=== PATIENT | male | born 1980 | race Caucasian/White ===

== ENCOUNTER 2017-03-04 23:32 | Emergency (ER) | payer OTHER ==
[2017-03-05 00:30] VITALS: BP 164/99
--- NOTE | 2017-03-05 01:48 | EDM.PDOC ---
ED HPI GENERAL MEDICAL PROBLEM - General Chief Complaint: Upper Extremity Injury/Pain Stated Complaint: UPPER NECK & BACK PAIN / HAPPENED AT WORK Time Seen by Provider: 03/05/17 00:35 Source of Information: Reports: Patient, Family History Limitations: Reports: No Limitations - History of Present Illness INITIAL COMMENTS - FREE TEXT/NARRATIVE: pt arrived with pain in the left shoulder. He was at work and some heavy boxes dropped on the shoulder and neck area. Onset: Today Duration: Hour(s): Location: Reports: Neck, Upper Extremity, Left Associated Symptoms: Reports: No Other Symptoms, Other (pt does have a burning sensation over the shoulder. ) Left Neck Pain Score (Numeric/FACES): 5 - Related Data Allergies Allergy/AdvReac Type Severity Reaction Status Date / Time No Known Allergies Allergy Verified 07/12/16 08:31 Home Meds: Home Meds Ibuprofen 400 mg PO Q6HR PRN 07/12/16 [History] Past Medical History Musculoskeletal History: Reports: Back Pain, Chronic, Other (See Below) Other Musculoskeletal History: lower back strain Psychiatric History: Reports: Anxiety - Past Surgical History HEENT Surgical History: Reports: Oral Surgery Social & Family History - Tobacco Use Smoking Status *Q: Never Smoker Second Hand Smoke Exposure: Yes - Caffeine Use Caffeine Use: Reports: Coffee, Energy Drinks - Alcohol Use Days Per Week of Alcohol Use: 0 - Recreational Drug Use Recreational Drug Use: No Drug Use in Last 12 Months: Yes Recreational Drug Type: Reports: Marijuana/Hashish Recreational Drug Use Frequency: Socially Recreational Drug Last Use: 2days ago Review of Systems - Review of Systems Review Of Systems: See Below Constitutional: Reports: No Symptoms Eyes: Reports: No Symptoms Ears: Reports: No Symptoms Nose: Reports: No Symptoms Mouth/Throat: Reports: No Symptoms Respiratory: Reports: No Symptoms Cardiovascular: Reports: No Symptoms GI/Abdominal: Reports: No Symptoms ED EXAM, GENERAL - Physical Exam Exam: See Below Free Text/Narrative:: pt arrived with pain in the area around the brachael plexus and in th left shoulder. He has good range of motion over the shoulder. Exam Limited By: No Limitations General Appearance: Alert, Anxious, Moderate Distress Ears: Normal TMs Ear Exam: Bilateral Ear: Auricle Normal, Canal Normal, TM normal Nose: Normal Inspection Throat/Mouth: Normal Inspection Head: Atraumatic Neck: Normal Inspection, Other (pt has muscle spasm above the shoulder blade area. ) Respiratory/Chest: No Respiratory Distress Cardiovascular: Regular Rate, Rhythm GI/Abdominal: Soft, Non-Tender Back Exam: Normal Inspection Extremities: Other ( Pt is tender over the areabove the shoulder blade and there is muscle spasm present. ) Neurological: Alert, Oriented, Normal Cognition Psychiatric: Normal Affect Course - Vital Signs Last Recorded V/S: Last Vital Signs Temp 36.5 C 03/05/17 00:27 Pulse Resp 18 03/05/17 00:27 BP 164/99 H 03/05/17 00:27 Pulse Ox 97 03/05/17 00:27 - Orders/Labs/Meds Orders: Active Orders 24 hr Category Date Time Status Shoulder Comp Lt [CR] Stat Exams 03/05/17 00:37 Taken Shoulder Comp Rt [CR] Stat Exams 03/05/17 00:32 Stop Req Departure - Departure Time of Disposition: 01:50 Disposition: Home, Self-Care 01 Condition: Fair Clinical Impression: Contusion of shoulder - Discharge Information Forms: ED Department Discharge Care Plan Goals: ice pack to the lower cervical area on the left and the shoulder, no work tomorrow, flexeril 10mg bid , tyelenol 3 1 tab q6h prn for pain, motrimn 600mg tid. - My Orders Last 24 Hours: My Active Orders 03/05/17 00:32 Shoulder Comp Rt [CR] Stat 03/05/17 00:37 Shoulder Comp Lt [CR] Stat - Assessment/Plan Last 24 Hours: My Active Orders 03/05/17 00:32 Shoulder Comp Rt [CR] Stat 03/05/17 00:37 Shoulder Comp Lt [CR] Stat
--- NOTE | 2017-03-06 09:23 | CR ---
Left shoulder. Findings: Mild AC joint hypertrophy. No fracture.
== END 2017-03-05 02:07 | disposition home or self-care (01) ==
LOC: JP.ED 23:32
DX: S40.012A Contusion of left shoulder, initial encounter (principal); W20.8XXA Other cause of strike by thrown, projected or falling object, initial encounter
CPT/HCPCS: 73030-26-LT; 73030-LT; 99283; 99284

== ENCOUNTER 2017-09-27 19:48 | Emergency (ER) | payer MEDICAID, OTHER ==
[2017-09-27 20:01] VITALS: BP 153/71
--- NOTE | 2017-09-27 20:23 | EDM.PDOC ---
ED HPI GENERAL MEDICAL PROBLEM - General Chief Complaint: Back Pain or Injury Stated Complaint: BACK PAIN Time Seen by Provider: 09/27/17 20:17 Source of Information: Reports: Patient, RN Notes Reviewed History Limitations: Reports: No Limitations - History of Present Illness INITIAL COMMENTS - FREE TEXT/NARRATIVE: 37-year-old gentleman presents emergency department day complaint of low back pain, he admits to doing some dancing earlier today this may have exacerbated the problem he denies any loss of bowel or bladder Lower Back Pain Score (Numeric/FACES): 7 - Related Data Allergies Allergy/AdvReac Type Severity Reaction Status Date / Time No Known Allergies Allergy Verified 07/12/16 08:31 Home Meds: Home Meds Ibuprofen 400 mg PO Q6HR PRN 07/12/16 [History] LORazepam [LORazepam] 0.5 mg PO ASDIRECTED PRN 09/27/17 [History] Past Medical History Cardiovascular History: Reports: Hypertension Other Cardiovascular History: BORDERLINE Musculoskeletal History: Reports: Back Pain, Chronic, Other (See Below) Other Musculoskeletal History: lower back strain Neurological History: Reports: Concussion, Other (See Below) Other Neuro History: HX HERNIATED DISCS, HAD PHYSICAL THERAPY Psychiatric History: Reports: Anxiety - Past Surgical History HEENT Surgical History: Reports: Oral Surgery Social & Family History - Tobacco Use Smoking Status *Q: Never Smoker Second Hand Smoke Exposure: Yes - Caffeine Use Caffeine Use: Reports: Coffee, Soda - Alcohol Use Days Per Week of Alcohol Use: 0 - Recreational Drug Use Recreational Drug Use: No Drug Use in Last 12 Months: Yes Recreational Drug Type: Reports: Marijuana/Hashish Recreational Drug Use Frequency: Socially Recreational Drug Last Use: 2days ago ED ROS GENERAL - Review of Systems Review Of Systems: See Below Constitutional: Reports: No Symptoms Respiratory: Reports: No Symptoms Cardiovascular: Reports: No Symptoms GI/Abdominal: Reports: No Symptoms Musculoskeletal: Reports: Back Pain Neurological: Reports: No Symptoms ED EXAM,LOWER BACK PAIN/INJURY - Physical Exam Exam: See Below Exam Limited By: No Limitations General Appearance: Alert, WD/WN, No Apparent Distress Respiratory/Chest: No Respiratory Distress Back Exam: Normal Inspection, Decreased Range of Motion, Muscle Spasm, Paraspinal Tenderness. No: Full Range of Motion, CVA Tenderness (R), CVA Tenderness (L), Vertebral Tenderness Course - Vital Signs Last Recorded V/S: Last Vital Signs Temp 98.8 F 09/27/17 20:00 Pulse 83 09/27/17 20:00 Resp 16 09/27/17 20:00 BP 153/71 H 09/27/17 20:00 Pulse Ox 97 09/27/17 20:00 - Orders/Labs/Meds Meds: Medications Discontinued Medications Generic Name Dose Route Start Last Admin Trade Name Lia PRN Reason Stop Dose Admin Cyclobenzaprine HCl 10 mg 09/27/17 20:21 09/27/17 20:27 Flexeril PO 09/27/17 20:22 10 mg ONETIME ONE Administration Ketorolac Tromethamine 60 mg 09/27/17 20:21 09/27/17 20:27 Toradol IM 09/27/17 20:22 60 mg ONETIME ONE Administration Departure - Departure Time of Disposition: 21:12 Disposition: Home, Self-Care 01 Condition: Fair Clinical Impression: Back pain Qualifiers: Back pain location: low back pain Chronicity: acute Back pain laterality: right Sciatica presence: without sciatica Qualified Code(s): M54.5 - Low back pain - Discharge Information Referrals: Adelso Verdugo SETTER OUT [Primary Care Provider] - Forms: ED Department Discharge, ED Return to Work/School Form Additional Instructions: Use hydrocodone as needed for pain control, use Flexeril as needed for muscle relaxant, Please followup with your primary care provider in 3-5 days if not better, please call return to the emergency department with worsening of symptoms. - Assessment/Plan Plan: Assessment Acuity = acute Site and laterality = low back pain Etiology = secondary lifting injury Manifestations = none Location of injury = Home Lab values = none Plan He had some improvement with Toradol injection and Flexeril, plan is to discharge home with hydrocodone 5/325 one tab by mouth 3 times a day when necessary total #10 and Flexeril 10 mg 1 tablet by mouth 3 times a day when necessary total #15 follow-up with primary care in 3-5 days for reevaluation if not better This note was dictated using oneforty recognition software please call with any questions on syntax or jose alfredo.
[2017-09-27] MEDS: Ketorolac 60 MG/2 ML SDV IM ONE (20:27)
[2017-09-27] MEDS: Cyclobenzaprine 10 MG Tab PO ONE (20:27)
== END 2017-09-27 21:27 | disposition home or self-care (01) ==
LOC: JP.ED 19:48
DX: M54.5 Low back pain (principal); I10 Essential (primary) hypertension
CPT/HCPCS: 96372; 99283; A9270; J1885

== ENCOUNTER 2019-01-30 21:25 | Emergency (ER) | payer MEDICAID ==
[2019-01-30 22:48] VITALS: BP 145/92
[2019-01-30] MEDS ORDERED: Ketorolac 60 MG/2 ML SDV IM ONE (22:59)
[2019-01-30] MEDS ORDERED: Cyclobenzaprine 10 MG Tab PO ONE (22:59)
--- NOTE | 2019-01-30 23:01 | EDM.PDOC ---
ED HPI GENERAL MEDICAL PROBLEM - General Chief Complaint: Back Pain or Injury Stated Complaint: BACK PAIN Time Seen by Provider: 01/30/19 22:55 Source of Information: Reports: Patient, RN Notes Reviewed History Limitations: Reports: No Limitations - History of Present Illness INITIAL COMMENTS - FREE TEXT/NARRATIVE: 38-year-old gentleman presents emergency department today complaint of low back pain, he states dealing with his low back pain for over a year has been physical therapy felt this was in good control however over the last week it has progressively gotten worse. He was evaluated by his primary care Flexeril and prednisone he states he has not gained much relief the pain continuous he does have follow-up appointment with his primary care tomorrow no loss of bowel or bladder low back Pain Score (Numeric/FACES): 8 - Related Data Allergies Allergy/AdvReac Type Severity Reaction Status Date / Time ibuprofen Allergy Other Unverified 01/30/19 23:08 Home Meds: Home Meds Ibuprofen 400 mg PO Q6HR PRN 07/12/16 [History] LORazepam 0.5 mg PO ASDIRECTED PRN 09/27/17 [History] Cyanocobalamin (Vitamin B-12) [Vitamin B-12] 1,000 mcg PO DAILY 06/10/18 [ History] Cholecalciferol (Vitamin D3) [Vitamin D3] 2,000 unit PO DAILY 06/15/18 [History] Cyclobenzaprine HCl 10 mg PO TID PRN 06/15/18 [History] raNITIdine HCl [Zantac] 150 mg PO BID 06/15/18 [History] predniSONE 01/30/19 [History] Past Medical History Cardiovascular History: Reports: Hypertension Other Cardiovascular History: BORDERLINE Musculoskeletal History: Reports: Back Pain, Chronic, Other (See Below) Other Musculoskeletal History: lower back strain Neurological History: Reports: Concussion, Other (See Below) Other Neuro History: HX HERNIATED DISCS, HAD PHYSICAL THERAPY. lower and upper back Psychiatric History: Reports: Anxiety Hematologic History: Reports: B12 Deficiency, Other (See Below) Other Hematologic History: vitamin d def - Infectious Disease History Infectious Disease History: Reports: C-Difficile, Shingles - Past Surgical History HEENT Surgical History: Reports: Oral Surgery Social & Family History - Tobacco Use Smoking Status *Q: Never Smoker - Caffeine Use Caffeine Use: Reports: Coffee - Recreational Drug Use Recreational Drug Use: No ED ROS GENERAL - Review of Systems Review Of Systems: See Below Constitutional: Reports: No Symptoms HEENT: Reports: No Symptoms Respiratory: Reports: No Symptoms Cardiovascular: Reports: No Symptoms GI/Abdominal: Reports: No Symptoms Musculoskeletal: Reports: Neck Pain Neurological: Reports: No Symptoms ED EXAM,LOWER BACK PAIN/INJURY - Physical Exam Exam: See Below Exam Limited By: No Limitations General Appearance: Alert, WD/WN, No Apparent Distress Respiratory/Chest: No Respiratory Distress Back Exam: Normal Inspection, Decreased Range of Motion, Muscle Spasm, Paraspinal Tenderness. No: CVA Tenderness (R), CVA Tenderness (L), Vertebral Tenderness Neurological: No: Straight Leg Raise (L), Straight Leg Raise (R) Course - Vital Signs Last Recorded V/S: Last Vital Signs Temp 97.2 F 01/30/19 22:44 Pulse 80 01/30/19 22:44 Resp 18 01/30/19 22:44 BP 145/92 H 01/30/19 22:44 Pulse Ox 95 01/30/19 22:44 - Orders/Labs/Meds Meds: Medications Discontinued Medications Generic Name Dose Route Start Last Admin Trade Name Freq PRN Reason Stop Dose Admin Cyclobenzaprine HCl 10 mg 01/30/19 22:59 01/30/19 23:06 Flexeril PO 01/30/19 23:00 10 mg ONETIME ONE Administration Fentanyl 100 mcg 01/30/19 23:31 01/30/19 23:49 Sublimaze IM 01/30/19 23:32 100 mcg ONETIME ONE Administration Ketorolac Tromethamine 60 mg 01/30/19 22:59 01/30/19 23:06 Toradol IM 01/30/19 23:00 60 mg ONETIME ONE Administration Departure - Departure Time of Disposition: 00:23 Disposition: Home, Self-Care 01 Condition: Fair Clinical Impression: Low back pain Qualifiers: Chronicity: chronic Back pain laterality: bilateral Sciatica presence: without sciatica Qualified Code(s): M54.5 - Low back pain; G89.29 - Other chronic pain - Discharge Information Referrals: Adelso Verdugo NP [Primary Care Provider] - Forms: ED Department Discharge Additional Instructions: Take ibuprofen as needed for pain control, use hydrocodone for breakthrough pain , please keep your follow-up appointment with primary care tomorrow - Assessment/Plan Plan: Assessment Acuity = chronic with acute exacerbation Site and laterality = low back pain Etiology = unknown etiology Manifestations = none Location of injury = Home Lab values = none Plan Good relief combination Toradol and fentanyl, discharge home hydrocodone 5/325 one tab by mouth 3 times a day when necessary: Number 4 is a follow-up appointment with his primary care tomorrow This note was dictated using [employer] voice recognition software please call with any questions on syntax or grammar.
[2019-01-30] MEDS ORDERED: fentaNYL 100 MCG/2 ML SDV IM ONE (23:31)
== END 2019-01-31 00:42 | disposition home or self-care (01) ==
LOC: JP.ED 21:25
DX: G89.29 Other chronic pain (principal); M54.5 Low back pain; Z79.899 Other long term (current) drug therapy; Z88.6 Allergy status to analgesic agent
CPT/HCPCS: 96372; 99283; A9270; J1885; J3010

== ENCOUNTER 2019-03-10 20:37 | Emergency (ER) | payer MEDICAID ==
[2019-03-10 21:18] VITALS: PULSE 68
[2019-03-10 21:33] VITALS: BP 140/88
--- NOTE | 2019-03-10 21:56 | EDM.PDOC ---
ED HPI GENERAL MEDICAL PROBLEM - General Chief Complaint: Lower Extremity Injury/Pain Stated Complaint: LEG IS SORE NOT AN ACCIDENT Time Seen by Provider: 03/10/19 21:40 Source of Information: Reports: Patient History Limitations: Reports: No Limitations - History of Present Illness INITIAL COMMENTS - FREE TEXT/NARRATIVE: 38-year-old male has a focal area of irritation on the anterior aspect of his right lower leg for the past 2 days. He was traveling, developed a burning sensation in his leg and became worried about a blood clot so stopped in the emergency room in [place]. Ultrasound was not available and the doctor told him that if it is still present today recheck when he gets home. He still has a focal spot of the burning sensation or tingling on the anterior aspect of the right lower leg but it is not worsened has no swelling, fever, redness or any other symptom. Onset: Gradual Duration: Day(s): (2 days) Location: Reports: Lower Extremity, Right Quality: Reports: Burning Associated Symptoms: Reports: No Other Symptoms - Related Data Allergies Allergy/AdvReac Type Severity Reaction Status Date / Time ibuprofen Allergy Other Unverified 03/10/19 21:22 Home Meds: Home Meds Ibuprofen 400 mg PO Q6HR PRN 07/12/16 [History] LORazepam 0.5 mg PO ASDIRECTED PRN 09/27/17 [History] Cyanocobalamin (Vitamin B-12) [Vitamin B-12] 1,000 mcg PO DAILY 06/10/18 [ History] Cholecalciferol (Vitamin D3) [Vitamin D3] 2,000 unit PO DAILY 06/15/18 [History] Cyclobenzaprine HCl 10 mg PO TID PRN 06/15/18 [History] Past Medical History Cardiovascular History: Reports: Hypertension Other Cardiovascular History: BORDERLINE Musculoskeletal History: Reports: Back Pain, Chronic, Other (See Below) Other Musculoskeletal History: lower back strain Neurological History: Reports: Concussion, Other (See Below) Other Neuro History: HX HERNIATED DISCS, HAD PHYSICAL THERAPY. lower and upper back Psychiatric History: Reports: Anxiety Hematologic History: Reports: B12 Deficiency, Other (See Below) Other Hematologic History: vitamin d def - Infectious Disease History Infectious Disease History: Reports: Chicken Pox - Past Surgical History HEENT Surgical History: Reports: Oral Surgery Social & Family History - Family History Family Medical History: Noncontributory - Tobacco Use Smoking Status *Q: Never Smoker - Caffeine Use Caffeine Use: Reports: Coffee, Soda - Recreational Drug Use Recreational Drug Use: Yes Recreational Drug Type: Reports: Marijuana/Hashish Recreational Drug Use Frequency: Rarely Review of Systems - Review of Systems Review Of Systems: See Below Constitutional: Denies: Fever Respiratory: Reports: No Symptoms Cardiovascular: Reports: No Symptoms GI/Abdominal: Reports: No Symptoms Skin: Denies: Rash, Erythema Neurological: Reports: Paresthesia Psychiatric: Reports: Anxiety ED EXAM, GENERAL - Physical Exam Exam: See Below Exam Limited By: No Limitations General Appearance: Alert, No Apparent Distress Respiratory/Chest: No Respiratory Distress Extremities: Other (Right lower extremity was examined, there is no gross deformity, swelling, asymmetry of the lower extremities. The small area of irritation is just medial to the tibia about two th[address] the way down the front of the leg. There is no significant erythema, swelling, bruising or objective abnormality. The area of irritation is only 1-2 cm circumference.) Course - Vital Signs Last Recorded V/S: Last Vital Signs Temp 97.0 F 03/10/19 21:25 Pulse 68 03/10/19 21:25 Resp 18 03/10/19 21:25 BP 140/88 03/10/19 21:32 Pulse Ox 97 03/10/19 21:25 - Re-Assessments/Exams Free Text/Narrative Re-Assessment/Exam: 03/10/19 21:54 Patient was reassured that this does not present as a DVT. He may have a very small spot of vasculitis or irritation of the nerve but nothing that needs treatment or further testing at this time. He will return if worsening. Departure - Departure Time of Disposition: 22:00 Disposition: Home, Self-Care 01 Clinical Impression: Neuropathic pain of right lower extremity - Discharge Information Instructions: Pain Without a Known Cause Referrals: Adelso Verdugo NP [Primary Care Provider] - Forms: ED Department Discharge Care Plan Goals: This should slowly get better over the next several days. If worsening such as swelling, fever, redness or increased pain recheck at any time.
== END 2019-03-10 22:00 | disposition home or self-care (01) ==
LOC: JP.ED 20:37
DX: M79.2 Neuralgia and neuritis, unspecified (principal); I10 Essential (primary) hypertension; F41.9 Anxiety disorder, unspecified; Z88.6 Allergy status to analgesic agent; Z79.899 Other long term (current) drug therapy
CPT/HCPCS: 99282

== ENCOUNTER 2019-08-12 22:17 | Emergency (ER) | payer MEDICAID ==
[2019-08-12 22:34] VITALS: BP 129/80; PULSE 88
[2019-08-12] MEDS ORDERED: Acetaminophen 500 MG Tab PO ONE (22:55)
--- NOTE | 2019-08-12 22:58 | EDM.PDOC ---
ED HPI GENERAL MEDICAL PROBLEM - General Chief Complaint: Upper Extremity Injury/Pain Stated Complaint: ELBOW PAIN NOT AN INJURY Time Seen by Provider: 08/12/19 22:40 Source of Information: Reports: Patient, Old Records History Limitations: Reports: No Limitations - History of Present Illness INITIAL COMMENTS - FREE TEXT/NARRATIVE: 39 yo male was referred to PT from the clinic recently for L elbow pain he's had for about a month. Beatriz was doing some physical work and felt a pop in the back of his elbow. Now has a little swelling and some numbness to that area. Hard to extend at the elbow against resistance. Onset: Today, Sudden Onset Date: 08/12/19 Onset Time: 22:00 Duration: Minutes: Location: Reports: Upper Extremity, Left Quality: Reports: Ache Severity: Moderate Improves with: Reports: Rest Worsens with: Reports: Movement Context: Reports: Other (see HPI) Associated Symptoms: Reports: Other (numbness over the elbow) Treatments [employer]: Reports: Other (see below) (none) left elbow Pain Score (Numeric/FACES): 5 - Related Data Allergies Allergy/AdvReac Type Severity Reaction Status Date / Time ibuprofen Allergy Other Verified 08/12/19 22:58 Home Meds: Home Meds Ibuprofen 400 mg PO Q6HR PRN 07/12/16 [History] LORazepam 0.5 mg PO ASDIRECTED PRN 09/27/17 [History] Cyanocobalamin (Vitamin B-12) [Vitamin B-12] 1,000 mcg PO DAILY 06/10/18 [ History] Cholecalciferol (Vitamin D3) [Vitamin D3] 2,000 unit PO DAILY 06/15/18 [History] Cyclobenzaprine HCl 10 mg PO TID PRN 06/15/18 [History] Past Medical History Cardiovascular History: Reports: Hypertension Other Cardiovascular History: BORDERLINE Musculoskeletal History: Reports: Back Pain, Chronic, Fracture, Other (See Below ) Other Musculoskeletal History: lower back strain Neurological History: Reports: Concussion, Other (See Below) Other Neuro History: HX HERNIATED DISCS, HAD PHYSICAL THERAPY. lower and upper back Psychiatric History: Reports: Anxiety Hematologic History: Reports: B12 Deficiency, Other (See Below) Other Hematologic History: vitamin d def - Infectious Disease History Infectious Disease History: Reports: Influenza - Past Surgical History HEENT Surgical History: Reports: Oral Surgery Social & Family History - Family History Family Medical History: Noncontributory - Tobacco Use Smoking Status *Q: Never Smoker - Caffeine Use Caffeine Use: Reports: Coffee - Recreational Drug Use Recreational Drug Use: No Review of Systems - Review of Systems Review Of Systems: See Below Constitutional: Reports: No Symptoms Musculoskeletal: Reports: Joint Pain (L elbow), Joint Swelling (L olecranon) Skin: Reports: No Symptoms Neurological: Reports: Numbness (over the olecranon) ED EXAM, GENERAL - Physical Exam Exam: See Below Exam Limited By: No Limitations General Appearance: Alert, WD/WN, No Apparent Distress Extremities: Other (slight puffiness over the L olecranon, palpable defect at the distal triceps tendon. Weak extension at the L elbow. ) Neurological: Alert, Oriented, CN II-XII Intact, Normal Cognition, No Motor/ Sensory Deficits Psychiatric: Normal Affect, Normal Mood Skin Exam: Warm, Dry, Intact, Normal Color, No Rash Course - Vital Signs Last Recorded V/S: Last Vital Signs Temp 36.1 C 08/12/19 22:37 Pulse 88 08/12/19 22:37 Resp 16 08/12/19 22:37 BP 129/80 08/12/19 22:37 Pulse Ox 96 08/12/19 22:37 - Orders/Labs/Meds Meds: Medications Discontinued Medications Generic Name Dose Route Start Last Admin Trade Name Lia PRN Reason Stop Dose Admin Acetaminophen 1,000 mg 08/12/19 22:55 Tylenol Extra Strength PO 08/12/19 22:56 ONETIME ONE Departure - Departure Time of Disposition: 23:10 Disposition: Home, Self-Care 01 Condition: Fair Clinical Impression: Triceps tendon rupture Qualifiers: Encounter type: initial encounter Laterality: left Qualified Code(s): S46.312A - Strain of muscle, fascia and tendon of triceps, left arm, initial encounter - Discharge Information *PRESCRIPTION DRUG MONITORING PROGRAM REVIEWED*: No *COPY OF PRESCRIPTION DRUG MONITORING REPORT IN PATIENT MALIK: No Instructions: Triceps Tendon Rupture (Distal) Referrals: Adelso Verdugo NP [Primary Care Provider] - Forms: ED Department Discharge Additional Instructions: Wear sling for protection. F/U with orthopedics koby. Take acetaminophen up to 1000 mg every 6 hrs for pain relief. Sepsis Event Note - Evaluation Sepsis Screening Result: No Definite Risk - Focused Exam Vital Signs: Vital Signs Temp Pulse Resp BP Pulse Ox 08/12/19 22:37 36.1 C 88 16 129/80 96 08/12/19 22:32 36.1 C 88 16 129/80 96 Date Exam was Performed: 08/12/19 Time Exam was Performed: 22:59
== END 2019-08-12 23:15 | disposition home or self-care (01) ==
LOC: JP.ED 22:17
DX: S46.312A Strain of muscle, fascia and tendon of triceps, left arm, initial encounter (principal); I10 Essential (primary) hypertension; F41.9 Anxiety disorder, unspecified; Z88.8 Allergy status to other drugs, medicaments and biological substances; Z79.899 Other long term (current) drug therapy; X58.XXXA Exposure to other specified factors, initial encounter
CPT/HCPCS: 99283; A9270

== ENCOUNTER 2019-10-06 08:36 | Emergency (ER) | payer MEDICAID ==
[2019-10-06 08:57] VITALS: BP 153/84; PULSE 79
--- NOTE | 2019-10-06 09:02 | EDM.PDOC ---
ED HPI GENERAL MEDICAL PROBLEM - General Chief Complaint: Back Pain or Injury Stated Complaint: BACK PAIN Time Seen by Provider: 10/06/19 09:02 Source of Information: Reports: Patient History Limitations: Reports: No Limitations - History of Present Illness INITIAL COMMENTS - FREE TEXT/NARRATIVE: 39 years old male patient presented with a chief complaint of low back pain. This started this morning. He woke up from sleep feeling pain in the right lower back. Radiate to his right buttock area but not down to his thigh or legs. Worse with movement and walking. Better when he lays back or stay still. Denies any fever. Denies any urinary symptom. Denies any weakness tingling or numbness in his legs. Denies any loss of control of urine or stool. Denies any diarrhea or constipation. Denies any cough or fever. History of low back pain in the past 5 years ago. MRI at that time did not show any significant abnormalities. He was referred for physical therapy and his symptoms resolved. No history of trauma or injury. No heavy lifting back Pain Score (Numeric/FACES): 8 - Related Data Allergies Allergy/AdvReac Type Severity Reaction Status Date / Time ibuprofen AdvReac Stomach Verified 10/06/19 08:57 Upset Home Meds: Home Meds Ibuprofen 400 mg PO Q6HR PRN 07/12/16 [History] LORazepam 0.5 mg PO ASDIRECTED PRN 09/27/17 [History] Cyanocobalamin (Vitamin B-12) [Vitamin B-12] 1,000 mcg PO DAILY 06/10/18 [ History] Cyclobenzaprine HCl 10 mg PO TID PRN 06/15/18 [History] Past Medical History - Past Health History Medical/Surgical History: Denies Medical/Surgical History Cardiovascular History: Reports: Hypertension Other Cardiovascular History: BORDERLINE Respiratory History: Reports: None Gastrointestinal History: Reports: None Genitourinary History: Reports: None Musculoskeletal History: Reports: Back Pain, Chronic, Fracture, Other (See Below ) Other Musculoskeletal History: lower back strain. left elbow pain Neurological History: Reports: Concussion, Other (See Below) Other Neuro History: HX HERNIATED DISCS, HAD PHYSICAL THERAPY. lower and upper back Psychiatric History: Reports: Anxiety Endocrine/Metabolic History: Reports: None Hematologic History: Reports: B12 Deficiency, Other (See Below) Other Hematologic History: vitamin d def Immunologic History: Reports: None Oncologic (Cancer) History: Reports: None - Infectious Disease History Infectious Disease History: Reports: Influenza - Past Surgical History Head Surgeries/Procedures: Reports: None HEENT Surgical History: Reports: Oral Surgery Musculoskeletal Surgical History: Reports: None Social & Family History - Family History Family Medical History: Noncontributory - Tobacco Use Smoking Status *Q: Never Smoker - Caffeine Use Caffeine Use: Reports: Coffee - Recreational Drug Use Recreational Drug Use: No ED ROS GENERAL - Review of Systems Review Of Systems: Comprehensive ROS is negative, except as noted in HPI. ED EXAM,LOWER BACK PAIN/INJURY - Physical Exam Exam: See Below Exam Limited By: No Limitations General Appearance: Alert, WD/WN, No Apparent Distress Ears: Normal External Exam, Normal Canal, Hearing Grossly Normal, Normal TMs Nose: Normal Inspection, Normal Mucosa, No Blood Throat/Mouth: Normal Inspection, Normal Lips, Normal Teeth, Normal Gums, Normal Oropharynx, Normal Voice, No Airway Compromise Head: Atraumatic, Normocephalic Neck: Normal Inspection, Supple, Non-Tender, Full Range of Motion Respiratory/Chest: No Respiratory Distress, Lungs Clear, Normal Breath Sounds, No Accessory Muscle Use, Chest Non-Tender Cardiovascular: Normal Peripheral Pulses, Regular Rate, Rhythm, No Edema, No Gallop, No JVD, No Murmur, No Rub GI/Abdominal: Normal Bowel Sounds, Soft, Non-Tender, No Organomegaly, No Distention, No Abnormal Bruit, No Mass Back Exam: Normal Inspection, Paraspinal Tenderness, Other (Right lumbar paraspinal muscle tenderness. No erythema or swelling. No deformity. No bony tenderness. CMS intact.). No: CVA Tenderness (R), CVA Tenderness (L), Vertebral Tenderness Extremities: Normal Inspection, Normal Range of Motion, Non-Tender, No Pedal Edema, Normal Capillary Refill Neurological: Alert, Normal Mood/Affect, Normal Dorsiflexion, CN II-XII Intact, Normal Plantar Flexion, Normal Gait, Normal Reflexes, No Motor/Sensory Deficits , Oriented x 3 Psychiatric: Normal Affect, Normal Mood Skin Exam: Warm, Dry, Intact, Normal Color, No Rash Lymphatic: No Adenopathy Course - Vital Signs Last Recorded V/S: Last Vital Signs Temp 36.1 C 10/06/19 08:55 Pulse 79 10/06/19 08:55 Resp 20 10/06/19 08:55 BP 153/84 H 10/06/19 08:55 Pulse Ox 97 10/06/19 08:55 - Orders/Labs/Meds Orders: Active Orders 24 hr Category Date Time Status HYDROmorphone [Dilaudid] Med 10/06/19 09:12 Once 1 mg IM ONETIME ONE Medication Orders Hydromorphone HCl (Dilaudid) 1 mg IM ONETIME ONE Stop: 10/06/19 09:13 Meds: Medications Generic Name Dose Route Start Last Admin Trade Name Freq PRN Reason Stop Dose Admin Hydromorphone HCl 1 mg 10/06/19 09:12 Dilaudid IM 10/06/19 09:13 ONETIME ONE Discontinued Medications Generic Name Dose Route Start Last Admin Trade Name Freq PRN Reason Stop Dose Admin Ketorolac Tromethamine 60 mg 10/06/19 09:10 Toradol IM 10/06/19 09:11 ONETIME ONE - Re-Assessments/Exams Free Text/Narrative Re-Assessment/Exam: 10/06/19 09:16 Patient was seen and examined shortly after arrival. Stable. Most likely muscle sprain/strain. He took Flexeril at home prior to arrival to the ER. Stated Toradol working well for him in the past. Given 60 mg IM Toradol and 1 mg IM Dilaudid. Advised to continue his Flexeril. Alternate Tylenol and ibuprofen for pain and discomfort. Heat packs. Stay active. Follow-up with his primary doctor tomorrow for reevaluation, etc. to physical therapy, discuss MRI of the lumbar spine. Advised to come back for any concern or any worsening symptom. Patient symptom improved. Patient agrees with the plan. Stable for discharge. Departure - Departure Time of Disposition: 09:18 Disposition: Home, Self-Care 01 Condition: Good Clinical Impression: Low back pain - Discharge Information Instructions: Heat Therapy, Musculoskeletal Pain, Acute Back Pain, Adult, Muscle Strain, [id number] Referrals: Adelso Verdugo NP [Primary Care Provider] - Forms: ED Department Discharge Additional Instructions: Advised to continue his Flexeril. Do not drive or operate machinery when taken Flexeril Alternate Tylenol and ibuprofen for pain and discomfort. Heat packs. Stay active. Follow-up with his primary doctor tomorrow for reevaluation, referral to physical therapy, discuss MRI of the lumbar spine. Advised to come back for any concern or any worsening symptom. Sepsis Event Note - Evaluation Sepsis Screening Result: No Definite Risk - Focused Exam Vital Signs: Vital Signs Temp Pulse Resp BP Pulse Ox 10/06/19 08:55 36.1 C 79 20 153/84 H 97 Date Exam was Performed: 10/06/19 Time Exam was Performed: 09:12 - My Orders Last 24 Hours: My Active Orders 10/06/19 09:12 HYDROmorphone [Dilaudid] 1 mg IM ONETIME ONE - Assessment/Plan Last 24 Hours: My Active Orders 10/06/19 09:12 HYDROmorphone [Dilaudid] 1 mg IM ONETIME ONE Plan: Advised to continue his Flexeril. Do not drive or operate machinery when taken Flexeril Alternate Tylenol and ibuprofen for pain and discomfort. Heat packs. Stay active. Follow-up with his primary doctor tomorrow for reevaluation, referral to physical therapy, discuss MRI of the lumbar spine. Advised to come back for any concern or any worsening symptom.
[2019-10-06] MEDS ORDERED: Ketorolac 60 MG/2 ML SDV IM ONE (09:10)
[2019-10-06] MEDS ORDERED: HYDROmorphone 1 MG/ML Syringe IM ONE (09:12)
== END 2019-10-06 10:15 | disposition home or self-care (01) ==
LOC: JP.ED 08:36
DX: M54.5 Low back pain (principal); I10 Essential (primary) hypertension; Z88.8 Allergy status to other drugs, medicaments and biological substances
CPT/HCPCS: 96372; 99283; J1170; J1885

== ENCOUNTER 2020-01-29 17:01 | Emergency (ER) | payer MEDICAID | END 2020-01-29 18:01 | disposition left against medical advice (07) | LOC: JP.ED 17:01 | DX: Z53.21 Procedure and treatment not carried out due to patient leaving prior to being seen by health care provider (principal) ==

== ENCOUNTER 2022-01-18 23:29 | Emergency (ER) | payer MEDICAID ==
[2022-01-19] MEDS ORDERED: Sodium Chloride 0.9% 10 ML Syringe FLUSH PRN (00:26)
[2022-01-19] MEDS ORDERED: Sodium Chloride 0.9% 1,000 ML IV ONE (00:26)
[2022-01-19] MEDS ORDERED: Ondansetron 4 MG/2 ML SDV IVPUSH ONE (00:27)
[2022-01-19] MEDS ORDERED: Ondansetron 4 MG/2 ML SDV ONE (00:57)
[2022-01-19 01:07] LABS: ESTIMATED GFR 86 mL/min (>60); TROPONIN I HIGH SENSITIVITY 9.7 pg/mL (<=60.3)
[2022-01-19] MEDS ORDERED: Metoclopramide 10 MG/2 ML SDV IVPUSH ONE (01:35)
[2022-01-19 01:56] VITALS: BP 140/68; PULSE 72
== END 2022-01-19 02:11 | disposition home or self-care (01) ==
LOC: JP.ED 23:29
DX: R11.2 Nausea with vomiting, unspecified (principal); E86.0 Dehydration; I10 Essential (primary) hypertension; Z79.899 Other long term (current) drug therapy
CPT/HCPCS: 36415; 80053; 84484; 85025; 93005; 93010; 96361; 96374; 96375; 99282; 99284; J2405; J2765; J3490; J7030

== ENCOUNTER 2022-04-13 20:51 | Emergency (ER) | payer MEDICAID ==
[2022-04-13 21:24] VITALS: BP 135/79; PULSE 76
[2022-04-13 23:11] LABS: ESTIMATED GFR 77 mL/min (>60)
[2022-04-18 15:11] LABS: BABESIA MICROTI IGG <1:10 (Neg:<1:10); BABESIA MICROTI IGM <1:10 (Neg:<1:10)
== END 2022-04-13 23:46 | disposition home or self-care (01) ==
LOC: JP.ED 20:51
DX: T78.1XXA Other adverse food reactions, not elsewhere classified, initial encounter (principal); I10 Essential (primary) hypertension; Z88.6 Allergy status to analgesic agent; Z79.899 Other long term (current) drug therapy; Z86.16 Personal history of COVID-19
CPT/HCPCS: 36415; 80053; 83690; 85025; 86140; 86618; 86666; 86753; 99283